=== PATIENT | male | born 1990 | race African-American/Black ===

== ENCOUNTER 2017-07-06 09:42 | Emergency (ER) | payer BC ==
[2017-07-06 09:51] VITALS: BP 140/80; BMI 27.6
--- NOTE | 2017-07-06 10:08 | DR.GENAD ---
HPI - PCP Primary Care Physician: NFD - Complaint/Symptoms Chief Complaint Doctors Comments: symptoms started 3 days ago, + sick contacts Chief Complaint:: PT STATES HE IS HAVING A LOT OF THROAT DISCOMFORT, DIFFICULTY SWALLOWING - Source History Provided: Patient - Mode of Arrival Mode of Arrival: Ambulatory - Timing Onset of Chief Complaint: 07/03/17 PMH - PMH Past Medical History: No (no contributory PMH) Past Surgical History: No - Family History History of Family Medical Conditions: Yes Family Medical History: Coronary Artery Disease, Hypertension - Social History Does patient currently use any type of tobacco product: Yes Have you used tobacco products in the last 12 months: Yes Type of Tobacco Use: Cigarettes How many years tobacco product used: 3 Does any household member use tobacco: No Alcohol Use: Occasionally Do you use any recreational Drugs:: Yes (MARIJUANA) Lives With: Alone Lives Where: Home - infectious screening In the last 2 months have you had wt loss of >10#?: NO Have you had fever, night sweats or hemotysis?: No Have you traveled outside the country in the last 6 months?: No Isolation: Standard ROS - Review of Systems Constitutional: negative: Chills, Fever, Malaise, Weakness, Fatigue Eyes: No Symptoms Reported ENTM: Throat Pain, Throat Swelling Respiratoy: No Symptoms Reported Cardiovascular: No Symptoms Reported Gastrointestinal/Abdominal: No Symptoms Reported Genitourinary: No Symptoms Reported Neurological: No Symptoms Reported Musculoskeletal: No Symptoms Reported Integumentary: No Symptoms Reported Hematologic/Lymphatic: No Symptoms Reported Endocrine: No Symptoms Reported Psychiatric: No Symptoms Reported All Other Systems: Reviewed and Negative PE - Vital Signs Vitals: Temperature 98.7 F Pulse Rate 70 Respiratory Rate 20 Blood Pressure 140/80 O2 Sat by Pulse Oximetry 100 - General Limitations: No Limitations General Appearance: Alert, In No Apparent Distress - Head Head Exam: Normal Inspection, Normocephalic - Eyes Eye exam: Normal Appearance - ENT Throat Exam: Tonsillar Erythema, Tonsillomegaly, Tonsillar Exudate - Neck Neck Exam: Normal Inspection, Full ROM, Trachea Midline, Lymphadenopathy. negative: Tenderness, Meningismus - Chest Chest Inspection: Normal Inspection, Symmetric Chest Wall Rise. negative: Tenderness - Respiratory Respiratory Exam: Normal Lung Sounds Bilat Respiratory Exam: Bilateral Clear to Auscultation - Cardiovascular Cardiovascular Exam: Regular Rate, Normal Rhythm. negative: Systolic Murmur, Diastolic Murmur - Abdominal Exam Abdominal Exam: Normal Inspection, Normal Bowel Sounds, Soft - Extremities Extremities Exam: Normal Inspection - Neurologic Neurological Exam: Alert, Oriented X3 - Psychiatric Psychiatric Exam: Normal Affect, Normal Mood - Skin Skin Exam: Warm, Dry. negative: Rash ROR - Labs Reviewed Laboratory Results Reviewed?: Yes (flu -, strep +) Laboratory: Influenza Type A (PCR) Negative (NEGATIVE) 07/06/17 10:14 Influenza Type B (PCR) Negative (NEGATIVE) 07/06/17 10:14 S. pyogenes (TEM-PCR) Detected (NOT DETECT) A 07/06/17 10:14 - Diagnosis Discharge Problem: Pharyngitis due to group A beta hemolytic Streptococci - Discharge Plan Disposition: 01 HOME, SELF-CARE Condition: Stable - Follow ups/Referrals Follow ups/Referrals: NFD,None [Primary Care Provider] - 3 days - Instructions Additional Notes - Additional Notes Additional Notes: pt prefers IM Bicillin over pills, off work x 2 days
[2017-07-06] MEDS ORDERED: BICILLIN L-A IM ONE ×2 (11:14→11:20)
== END 2017-07-06 11:45 | disposition home or self-care (01) ==
LOC: ER 09:55
DX: R13.10 Dysphagia, unspecified (principal); B95.1 Streptococcus, group B, as the cause of diseases classified elsewhere
CPT/HCPCS: 87502; 87651; 96372; 99282; J0570